=== PATIENT | female | born 2000 | race Caucasian/White ===

== ENCOUNTER 2022-09-01 16:55 | Emergency (ER) | payer SELFPAY ==
[~2022-09-01] VITALS: Ht 162.6 cm; Wt 55.0 kg
[2022-09-02 00:18] LABS: BASOPHILS % 0.3 % (0.0-2.0); EOSINOPHILS % 0.8 % (0.0-5.0); HEMOGLOBIN. 13.1 g/dL (12.0-16.0); MEAN CORPUSCULAR HEMOGLOBIN 31.4 pg (28.0-32.0); MEAN CORPUSCULAR VOLUME 91.5 fL (81.0-99.0); MEAN PLATELET VOLUME 8.4 fl (7.4-10.4); MONOCYTES % 7.3 % (2.0-8.0); NEUTROPHILS % 63.6 % (40.0-76.0); PLATELET 265 x1000/uL (130-400); RED BLOOD CELL COUNT 4.15 mill/uL (4.2-5.4); RED CELL DISTRIBUTION WIDTH 12.6 % (11.6-14.6)
[2022-09-02 02:16] LABS: CHLORIDE 106 mEq/L (98-107); ETHANOL BLOOD < 10 mg/dL
[2022-09-02 03:00] VITALS: BP 118/81
[2022-09-02] MEDS ORDERED: IBUP-2029 MT (03:02)
== END 2022-09-02 03:20 | disposition home or self-care (01) ==
LOC: ER 17:21
DX: R07.89 Other chest pain (principal); M25.519 Pain in unspecified shoulder
CPT/HCPCS: 36415; 71045; 80053; 80320; 83880; 84484; 85025; 93005; 99285; G0480

== ENCOUNTER 2022-09-11 20:07 | Emergency (ER) | payer SELFPAY ==
[~2022-09-11] VITALS: Ht 157.5 cm; Wt 60.9 kg
[~2022-09-11 20:07] MED LIST: IBUP-2029 MT
[2022-09-11 20:39] VITALS: BP 137/59
[2022-09-11] MEDS ORDERED: KETOROLAC 60MG/2ML VIAL IM STA (23:57)
[2022-09-12] MEDS ORDERED: METOCLOPRAMIDE HCL 10MG/2ML VIAL IM ONE
[2022-09-12 00:48] LABS: CLARITY URINE CLEAR (CLEAR); COLOR URINE YELLOW (YELLOW); KETONES URINE TRACE (NEGATIVE); LEUKOCYTE ESTERASE URINE NEGATIVE (NEGATIVE); NITRITE URINE NEGATIVE (NEGATIVE); OCCULT BLOOD URINE NEGATIVE (NEGATIVE); PROTEIN URINE NEGATIVE (NEGATIVE); SPECIFIC GRAVITY URINE 1.009 (1.005-1.030); UROBILINOGEN URINE 0.2 E.U./dL (0.2-1.0)
[2022-09-12] MEDS ORDERED: NAPR-681 PO (01:43)
[2022-09-12] MEDS ORDERED: D-ME473S50 PO (01:43)
== END 2022-09-12 02:17 | disposition home or self-care (01) ==
LOC: ER 20:07
DX: R51.9 Headache, unspecified (principal); J06.9 Acute upper respiratory infection, unspecified; Z20.822 Contact with and (suspected) exposure to COVID-19
CPT/HCPCS: 81003; 81025; 87070; 87426; 87430; 87804; 96372; 99284; C9803; J1885; J2765